=== PATIENT | female | born 1945 | race Caucasian/White ===

== ENCOUNTER 2019-06-22 08:17 | Inpatient (IN) ==
[2019-06-22] MEDS ORDERED: LR 1,000 ML ONE (09:19)
[2019-06-22 09:27] LABS: HEMATOCRIT 35.7 % (37.0-47.0); HEMOGLOBIN 12.3 g/dL (12.0-16.0); MCH 36.5 PG (27-31); MCHC 34.5 g/dL (33-37); MCV 105.9 FL (81-99); MPV 11.1 FL (7.4-10.4); RBC 3.37 XMIL (4.2-5.4); WBC 11.12 X1000 (4.8-10.8)
--- NOTE | 2019-06-22 09:42 | EKG Report ---
Test Performed on : 06/22/2019 08:44:35 AM Test Reason : Preop Blood Pressure : / mmHG Vent. Rate : 083 BPM Atrial Rate : 083 BPM P-R Int : 152 ms QRS Dur : 084 ms QT Int : 402 ms P-R-T Axes : 025 001 023 degrees QTc Int : 472 ms Normal sinus rhythm. Possible Left atrial enlargement Cannot rule out Anterior infarct , age undetermined Abnormal ECG No previous ECGs available Confirmed by Austyn EDMOND, Orestes Short ([id number]) on 06/24/2019 9:24:27 AM
[2019-06-22 09:47] LABS: AGAP 12; ALBUMIN 2.8 g/dL (3.5-5.0); ALKALINE PHOSPHATASE 338 U/L (32-104); BUN 13 mg/dL (8-22); CHLORIDE 96 mmol/L (98-107); COSMO 265; CREATININE 0.9 mg/dL (0.5-0.9); ESTIMATED GFR > 60; GLUCOSE 107 mg/dL (70-104); GOT 59 U/L (10-30); GPT 25 U/L (10-36); POTASSIUM 4.3 mmol/L (3.5-5.1); SODIUM 132 mmol/L (136-145); TCO2 24 mmol/L (25-35); TOTAL BILIRUBIN 7.29 mg/dL (0.20-1.00); TOTAL PROTEIN 5.6 g/dL (6.3-8.3)
[2019-06-22] MEDS ORDERED: ALBUMIN 25% ONE (09:58)
[2019-06-22] MEDS ORDERED: CLINDAMYCIN 900 MG/D5W 900 MG/50 ML IVPB ONE (10:00)
[2019-06-22] MEDS ORDERED: SENSORCAINE-MPF 0.5%/EPI 1:200,000 ONE (10:56)
[2019-06-22] MEDS ORDERED: PRECEDEX ONE (13:38)
[2019-06-22] MEDS ORDERED: PERCOCET-5 ONE (16:35)
--- NOTE | 2019-06-22 17:00 | OPERATIVE NOTE ---
PROCEDURE DATE: 06/22/2019 PREOPERATIVE DIAGNOSIS: Right closed olecranon fracture. POSTOPERATIVE DIAGNOSIS: Right closed olecranon fracture. PROCEDURE: Open reduction and internal fixation right olecranon fracture. SURGEON: Dr. Ramin Rivera. ASSISTANTS: Homero Torre, whose help was needed for retraction, reduction and placement of implants. ANESTHESIA: LMA. COMPLICATIONS: None. SPECIMENS: None. DRAINS: None. BLOOD LOSS: 50 mL. IMPLANTS: Synthes 3.5 mm variable angle olecranon locking plate was used with 2 cortical screws in the shaft and 2.7 mm locking screws everywhere else on the plate. INDICATIONS FOR PROCEDURE: Ms Garcia is a 74-year-old lady who sustained a same-level fall earlier this week. X-rays were taken in the office demonstrating a displaced transverse olecranon fracture. X-rays of her hip were also taken showing a comminuted nondisplaced greater trochanteric femur fracture on the right. Given these findings, decision was made to proceed to the operating room for open reduction internal fixation of her right olecranon fracture. Risks, benefits, alternative therapies were discussed the patient and family regarding surgery. Risks surgery include but not limited to risks of bleeding, infection, damage to nerves and vessels around the area, malunion, nonunion, continued pain following surgery, and need for revision surgery. The patient has significant history of alcoholic cirrhosis and end-stage liver disease requiring a TIPS procedure. I told her given this, she is likely going to be a little bit higher risk of wound complications. There is also risk anesthesia including blood clot, stroke, heart attack, even . Patient understands these risks. All questions were answered. Informed consent was obtained. PROCEDURE IN DETAIL: Ms. Garcia was identified by wristband and greeted in the preop holding area on 06/22/2019. Her right upper extremity which was the operative site was marked with indelible ink per [facility] Sign Your Site protocol. Following this, the patient was transferred back to the operating room for surgery. Upon entering the OR, she was transferred to supine position on the Skytron table. All bony prominences were well padded. LMA was then placed. At this time, the right upper extremity was prepped and draped in routine sterile fashion. Formal time-out was performed confirming correct patient, procedure, operative site, operative side, administration of preop antibiotics. Everyone was in agreement. Patient received 900 mg of clindamycin prior to incision. Esmarch was used to exsanguinate the right upper extremity and tourniquet was elevated to 250 mmHg. Total tourniquet time was 86 minutes. Once this was done, a 15 blade knife was used to make a longitudinal incision over the ulnar border extending proximally and curving over the radial aspect of the elbow and olecranon. Knife was used to dissect through skin, subcutaneous fat, and directly down onto the ulnar border distally. Metzenbaum scissors were then used to spread full-thickness flaps along the elbow. Care was taken to avoid dissecting medially for ulnar nerve exposure, which was not necessary. Once this was done, our fracture site was easily visible and significantly displaced. A knife was used to clean the periosteum and soft tissue from the edges of the fracture site. Rongeur and curette were then used to mechanically dbride the fracture site. At this time, the elbow joint and the fracture was copiously irrigated with normal saline. Sbsgt-as-sojqf reduction clamps were then used as well as a dental pick and the arm was extended slightly and anatomic reduction was obtained with the clamps. Once this was done, two 16 K-wires were then cross pinned provisionally holding our reduction. X-ray was taken confirming anatomic reduction of the articular surface. Once we were done with this, a Synthes variable angle olecranon plate was then taken from the back table and placed in the wound. We contoured the plate slightly so that it would fit flush on the bone. A 15 blade knife was used to make a longitudinal split in the triceps insertion so the plate would sit flush on bone. Once this was done, plate was then pinned in position. X-ray was again taken confirming good position of the plate and reduction of fracture. We then proceeded with placement of 3 locking screws in the proximal fracture fragment. A 3.5 mm cortical screw was then placed in compression mode on the shaft in order to obtain compression across the fracture site. Fluoroscopy was again taken. We were satisfied with the reduction and placement of implants. We then proceeded with placement of an additional cortical screw in the shaft followed by multiple 2.7 mm locking screws in the proximal end of the plate. Once all screws were placed, elbow was then taken through full range of motion and found to have full flexion and extension with no palpable crepitus or grinding. She had full pronation, supination of the forearm. At this time final AP and lateral images of the elbow were taken confirming anatomic reduction of the fracture and extra-articular placement of our screws. Images were then saved. At this time wound was copiously irrigated with normal saline. Then 20 mL of 0.25% Marcaine with epinephrine were then injected around the wound for local analgesia. We then proceeded with closure of our triceps tendon split with #1 Vicryl suture. 0 Vicryl suture was then used for closure of our flexor/ extensor fascia over the plate. We then closed the wound with 2-0 Vicryl suture subcutaneously and 4-0 nylons in horizontal mattress fashion for skin closure. The tourniquet was then deflated. Again, total tourniquet time was 86 minutes. Patient was found to have a palpable radial pulse and brisk capillary refill in all digits. At this time wound was then dressed with Xeroform, 4x4s, ABD, sterile Webril. She was then placed into a well-padded posterior slab splint with the arm in about 70 degrees of flexion. At this time, patient was then extubated, transferred over to hospital stretcher, taken to recovery in stable condition. There were no acute complications during the procedure. All sponge and sharp counts were correct at conclusion of the procedure.
[2019-06-22] MEDS ORDERED: PERCOCET-5 PO PRN (19:30)
[2019-06-23] MEDS: KLOR-CON PO SCH (10:37)
[2019-06-23] MEDS: XIFAXAN PO SCH ×2 (10:37→21:50)
[2019-06-23] MEDS: ZYRTEC PO SCH (10:37)
[2019-06-23] MEDS: SYNTHROID PO SCH (10:37)
[2019-06-23] MEDS: VITAMIN C PO SCH (10:37)
[2019-06-23] MEDS: VITAMIN B-1 PO SCH (10:37)
[2019-06-23] MEDS: LACTULOSE PO SCH ×3 (10:38→21:50)
[2019-06-23] MEDS: LASIX PO SCH (10:38)
[2019-06-23] MEDS: PERIDEX MT SCH ×2 (10:38→21:50)
[2019-06-23] MEDS: PROTONIX PO SCH (10:38)
[2019-06-23] MEDS: PERCOCET-5 PO PRN (18:50)
[2019-06-23] MEDS: FLONASE NAS SCH (18:50)
[2019-06-24] MEDS: PERCOCET-5 PO PRN (01:02)
[2019-06-24] MEDS: ULTRAM PO PRN ×2 (06:40→14:09)
[2019-06-24] MEDS: KLOR-CON PO SCH (11:15)
[2019-06-24] MEDS: LACTULOSE PO SCH ×2 (11:16→18:50)
[2019-06-24] MEDS: XIFAXAN PO SCH ×2 (11:16→21:00)
[2019-06-24] MEDS: VITAMIN C PO SCH (11:17)
[2019-06-24] MEDS: ZYRTEC PO SCH (11:17)
[2019-06-24] MEDS: LASIX PO SCH (11:17)
[2019-06-24] MEDS: PERIDEX MT SCH (11:17)
[2019-06-24] MEDS: PROTONIX PO SCH (11:18)
[2019-06-24] MEDS: VITAMIN B-1 PO SCH (11:18)
[2019-06-24] MEDS: FLONASE NAS SCH (11:19)
[2019-06-24] MEDS: SYNTHROID PO SCH (11:19)
[2019-06-24 12:48] LABS: BASO# 0.02 X1000 (0.0-0.2); BASO% 0.1 % (0.0-0.8); EOS# 0.19 X1000 (0.0-0.7); EOS% 1.3 % (0.0-10.0); HEMATOCRIT 36.7 % (37.0-47.0); HEMOGLOBIN 12.6 g/dL (12.0-16.0); IMM GRAN% 0.7 % (0.0-0.5); LYMPH# 0.68 X1000 (1.2-3.4); LYMPH% 4.8 % (20.5-51.1); MCH 37.5 PG (27-31); MCHC 34.3 g/dL (33-37); MCV 109.2 FL (81-99); MONO# 1.43 X1000 (0.11-0.59); NEUT# 11.81 X1000 (1.4-6.5); NEUT% 83.1 % (42.2-75.2); PLT 168 X1000 (130-400); RBC 3.36 XMIL (4.2-5.4); RDW 15.2 % (11.5-14.5); WBC 14.23 X1000 (4.8-10.8)
[2019-06-24 13:11] LABS: AGAP 12; BUN 11 mg/dL (8-22); CALCIUM 8.5 mg/dL (8.8-10.2); CHLORIDE 95 mmol/L (98-107); COSMO 264; CREATININE 0.7 mg/dL (0.5-0.9); ESTIMATED GFR > 60; GLUCOSE 104 mg/dL (70-104); POTASSIUM 4.2 mmol/L (3.5-5.1); SODIUM 132 mmol/L (136-145); TCO2 25 mmol/L (25-35)
[2019-06-24] MEDS: LOVENOX SUBQ SCH (14:08)
--- NOTE | 2019-06-24 14:53 | ORTHOPAEDICS PROGRESS NOTE ---
DATE: 06/24/2019 SUBJECTIVE: No acute events overnight. The patient has had some postoperative dementia and confusion since surgery. She has been off of oxygen and is doing well on room air. She reports minimal pain in the elbow and hip. She is tolerating a diet and urinating voluntarily. OBJECTIVE: Afebrile, vital signs stable. O2 saturation is 97% on room air. Extremities: Examination of right upper extremity shows posterior slab splint and dressing to be clean, dry, intact, in good repair. Motor is intact to AIN, PIN, and ulnar nerve distribution. Sensation is intact to light touch to median, radial, ulnar, and axillary nerve distribution. Brisk capillary refill x5. Examination of right lower extremity shows skin intact. Thigh and calf soft and compressible. She is tender to palpation around her greater trochanter. Neurovascularly intact. ASSESSMENT: A 74-year-old female status post open reduction and internal fixation of right olecranon fracture and closed treatment of right greater trochanteric femur fracture, postop day 2. PLAN: 1. Patient is nonweightbearing to the right upper extremity. She can be weightbearing as tolerated to the right lower extremity. Physical therapy to mobilize. 2. Ice and elevate right upper extremity. 3. Lovenox DVT prophylaxis. 4. The patient has some postoperative confusion, likely secondary to anesthesia and dementia. We will get another set of labs today. 5. Disposition. Plan to discharge back to [facility] tomorrow. She will follow up with me in clinic in 10 to 14 days for a wound check.
[2019-06-25] MEDS: LACTULOSE PO SCH ×3 (00:37→15:35)
[2019-06-25] MEDS: ULTRAM PO PRN (07:08)
[2019-06-25] MEDS: LOVENOX SUBQ SCH (07:08)
[2019-06-25] MEDS: PERIDEX MT SCH ×2 (08:04→11:09)
[2019-06-25] MEDS: SYNTHROID PO SCH (11:08)
[2019-06-25] MEDS: ZYRTEC PO SCH (11:09)
[2019-06-25] MEDS: XIFAXAN PO SCH (11:09)
[2019-06-25] MEDS: KLOR-CON PO SCH (11:09)
[2019-06-25] MEDS: VITAMIN C PO SCH (11:09)
[2019-06-25] MEDS: VITAMIN B-1 PO SCH (11:09)
[2019-06-25] MEDS: PROTONIX PO SCH (11:10)
[2019-06-25] MEDS: LASIX PO SCH (11:10)
[2019-06-25 12:22] VITALS: BP 147/68
--- NOTE | 2019-06-25 13:12 | ORTHOPAEDICS PROGRESS NOTE ---
DATE: 06/25/2019 SUBJECTIVE: No acute events overnight. The patient has had some postoperative dementia; however, it is slightly improved today from yesterday. She is tolerating a diet. She states her pain is controlled. OBJECTIVE: Vital Signs: Afebrile. Her vital signs are stable. Extremities: Examination of right upper extremity shows the splint to be clean, dry, intact. The patient is neurovascularly intact to the right upper extremity. Examination of right hip shows skin intact. Tender to palpation laterally over greater trochanter. No pain with log roll of the hip. Thigh and calf soft and compressible. Neurovascularly intact. ASSESSMENT: A 74-year-old female status post open reduction internal fixation of right olecranon fracture and closed treatment of right greater trochanteric femur fracture. PLAN: 1. Patient is nonweightbearing to right upper extremity. She can be weightbearing as tolerated to right lower extremity. She will need physical therapy to mobilize. She will likely be bed to chair transfers for the next few weeks. She will be a high fall risk. 2. Postoperative dementia seems to be improving. The labs are all within acceptable limits. We will continue to monitor. 3. Ice to right elbow and hip as needed for pain. 4. Lovenox for DVT prophylaxis. 5. Disposition. Plan to discharge back to [facility] today. I will see her back in the clinic in 10 to 14 days for wound check.
--- NOTE | 2019-06-25 13:34 | DISCHARGE SUMMARY ---
ADMISSION DATE: 06/24/2019 DISCHARGE DATE: 06/25/2019 ADMISSION DIAGNOSES: 1. Right closed olecranon fracture. 2. Right greater trochanteric femur fracture. DISCHARGE DIAGNOSES: 1. Right closed olecranon fracture. 2. Right greater trochanteric femur fracture. PROCEDURE: Open reduction and internal fixation right olecranon fracture. CONSULTATIONS: None. BRIEF HOSPITAL COURSE: Ms. Garcia is a 74-year-old lady who sustained the above injuries about 1 week ago. She was seen in clinic, evaluated for this and set up for fixation of her right olecranon fracture. Surgery performed on 06/22/2019. She tolerated the procedure well. However, was having some issues with respiratory depression postoperatively and was thus admitted for observation. Over the weekend, her respiratory status improved and eventually resolved where she is now on room air with good O2 saturation. She also developed some postoperative dementia. Lab work was drawn showing no signs of metabolic encephalopathy. Her dementia began to resolve on postop day 3. On postoperative day 3, patient was tolerating a diet, had gotten up with physical therapy and her pain was well controlled on p.o. pain medication. Patient was thus discharged back to [facility] residential Facility on 06/25/2019. DISPOSITION: Discharged back to inpatient rehab or at [facility]. ACTIVITY: The patient is nonweightbearing right upper extremity. Weight bear as tolerated right lower extremity. DISCHARGE MEDICATIONS: See chart. DISCHARGE INSTRUCTIONS: 1. Patient is to keep surgical dressing clean, dry, intact until follow-up appointment. 2. She should take Lovenox 30 mg daily for DVT prophylaxis. 3. The patient is to follow up with me in clinic in 10 to 14 days for wound check. 4. The patient is to return to the ER with any chest pain, shortness of breath, fever, and any interval drainage from surgical incision.
== END 2019-06-25 16:08 | DRG 510 ==
LOC: OR 08:17 → 4N 08:17
PROVIDERS: ADMIT Orthopaedic Surgery Sports Medicine; ATTEND Orthopaedic Surgery Sports Medicine

== ENCOUNTER 2019-07-06 08:46 | Inpatient (IN) ==
[2019-07-06] MEDS ORDERED: DIPRIVAN 1% ONE (09:30)
[2019-07-06] MEDS ORDERED: ROBINUL ONE (09:30)
[2019-07-06] MEDS ORDERED: XYLOCAINE-MPF 2% ONE (09:30)
[2019-07-06] MEDS ORDERED: PEPCID ONE (09:51)
[2019-07-06] MEDS ORDERED: KEFZOL 1 GM/D5W 1 GM/50 ML IVPB ONE (09:51)
[2019-07-06] MEDS ORDERED: LR 500 ML ONE (09:51)
[2019-07-06] MEDS ORDERED: PRECEDEX ONE (10:31)
[2019-07-06] MEDS ORDERED: EPHEDRINE ONE (11:13)
[2019-07-06] MEDS ORDERED: DILAUDID ONE (11:52)
[2019-07-06] MEDS ORDERED: SENSORCAINE-MPF 0.5%/EPI 1:200,000 ONE (13:09)
[2019-07-06] MEDS ORDERED: PERCOCET-5 PO PRN ×2 (14:00)
[2019-07-06] MEDS ORDERED: ZOFRAN PO PRN (20:09)
[2019-07-06] MEDS ORDERED: ULTRAM PO PRN (20:09)
--- NOTE | 2019-07-06 21:31 | OPERATIVE NOTE ---
PROCEDURE DATE: 07/06/2019 PREOPERATIVE DIAGNOSIS: Right olecranon fracture with failed hardware: POSTOPERATIVE DIAGNOSIS: Right olecranon fracture with failed hardware: PROCEDURE: 1. Hardware removal, right olecranon. 2. Revision open reduction and internal fixation, right olecranon fracture. SURGEON: Ramin Rivera MD. GLUING MACHINE FEEDER: VENUS Arcos, whose help was needed for retraction, reduction, and placement of implants. ANESTHESIA: General endotracheal anesthesia. COMPLICATIONS: None. SPECIMENS: None. DRAINS: None. BLOOD LOSS: 10 mL. INDICATIONS FOR PROCEDURE: Ms. Garcia is a 74-year-old lady who has been followed after sustaining a right closed olecranon fracture. She previously underwent open reduction and internal fixation by me about 12 days ago. She was placed into a splint following surgery. However, has been using the arm to lift herself out of bed, and has had a couple of falls while at the [facility] facility. The patient does have a history of some dementia. X-rays taken in the office at her first postop visit demonstrated failure of fixation of the proximal fracture piece, which pulled out of the plate. Given these findings, decision was made to proceed back to the operating room for hardware removal and revision fixation of the fracture. Risks, benefits, and alternative therapies were discussed with the patient and daughter regarding surgery. Risks of surgery include, but are not limited to, risks of bleeding, infection, damage to nerves and vessels around the area, malunion, nonunion, continued pain following surgery, need for revision surgery, also risks of anesthesia including blood clot, stroke, heart attack, even . Patient understands these risks. All questions were answered. Informed consent was obtained. PROCEDURE IN DETAIL: Ms. Garcia was identified by wristband and greeted in the preoperative holding area on 07/06/2019. Her right upper extremity, which was the operative site,, was marked with indelible ink per [facility] sign and site protocol. Following this, the patient was transferred back to the operating room for surgery. Upon entering the OR, she was transferred in supine position on the Skytron table. All bony prominences were well padded. General endotracheal anesthesia was then induced. At this time, the right upper extremity was then prepped and draped in routine sterile fashion. Formal time-out was performed, confirming correct patient, procedure, operative site, operative side, administration of preop antibiotics. Everyone was in agreement. Patient received clindamycin prior to incision. Esmarch was used to exsanguinate the right upper extremity and tourniquet was elevated to 250 mmHg. Total tourniquet time was 132 minutes. Once this was done, a 15 blade knife was used to make our incision through the old incision along the posterior aspect of the ulna, curving radially around the olecranon. Knife was used to dissect through skin and subcutaneous tissue. Our fascial closure over the plate was then identified and split through the prior incision. At this time, we had good exposure of the fracture site. The proximal piece of the olecranon fracture site had pulled off and was retracted proximally. Synthes cortical and locking screw drivers were then used to remove the initial plate, which was found to be well fixed to the ulnar shaft. Once that plate was removed, the plate holes were curetted out. We then began with exposing our fracture site again. Patient was found to have some fracture callus within the joint and along the bony ends of the fracture. The proximal piece was mobilized by freeing up some of the triceps tendon musculature. It was still significantly tight. She had some significant bone loss from where her fixation failed and the proximal piece ripped through the screws and the plate. The articular surface was intact; however, the more dorsal and ulnar aspect of bone was missing. Once we adequately freed up her fracture sites, we then used [id number]-io-[id number] reduction clamps to get a reduction of the fracture. Fluoroscopy was brought in, confirming reduction on AP and lateral views. We then initially pinned the fracture with a 2-0 K-wire. Once this was done, a Yamilet olecranon locking plate was placed on the bone and screw configuration was examined. We also had a [employer] plate available to look at as well. We decided to go with a Yamielt plate as it had better proximal fixation for this fracture pattern. The plate was then pinned in position in routine fashion, and again x-rays were taken, confirming position of the plate and reduction of the fracture. Following this, we placed a locking home-run screw through the most proximal hole. A cortical shaft screw was then placed in compression mode to compress against the fracture site. Following this, we then began to fill our proximal locking screw holes. We had good fixation of the proximal olecranon fracture fragment with our locking screw configuration. Three cortical shaft screws were then placed in routine fashion. Once all screws were placed, AP and lateral images were again taken, demonstrating anatomic reduction of the joint line. We did have some room along the subchondral bone of the proximal fragment and joint line for placement of an additional 2.7 mm cortical screw outside of the plate, and this was thus drilled with a 2-0 drill bit in routine fashion. The screw had excellent purchase and provided another point of fixation across the fracture site. Once all hardware was placed, we then examined the fracture site, and noted to have a large bony defect over the medial aspect of the olecranon. 1 mL of DBX bone graft was opened and packed into this area. At this time, a #2 FiberWire suture was then used to repair our triceps split to the posterior aspect of the olecranon. We also used a separate #2 FiberWire in a running locking Krackow fashion proximally up the triceps tendon, and then back down, and secured this under the plate to help take some of the tension off the proximal olecranon fragment. At this time, the elbow was then taken through range of motion. She did have some stiffness and would flex to about 90 degrees without stressing the repair. We took final AP and lateral x-rays, again confirming extra- articular placement of the hardware and anatomic reduction of the articular surface. Wound was then copiously irrigated with normal saline. 20 mL of 0.25% Marcaine with epinephrine were injected around the muscles and surgical incision site for local analgesia. We then proceeded with closure of our flexor and extensor fascia over the plate using 0 Vicryl suture. 2-0 Vicryl sutures were used for subcutaneous tissue closure followed by 3-0 nylons in horizontal mattress fashion for skin closure. Tourniquet was then deflated. Again, total tourniquet time was 132 minutes. The wound was then dressed with Xeroform, 4x4s, Dacron padding along the elbow. She was then placed into a well-padded anterior and posterior splint, keeping the elbow in near full extension in order to take tension off the repair. At this time, patient was then extubated, transferred over to hospital stretcher, and taken to Recovery. All sponge and sharp counts were correct at conclusion of the procedure.
[2019-07-06] MEDS: LACTULOSE PO SCH (22:28)
[2019-07-06] MEDS: MACRODANTIN PO SCH (22:28)
[2019-07-06] MEDS: XIFAXAN PO SCH (22:28)
[2019-07-07] MEDS: SYNTHROID PO SCH (06:15)
[2019-07-07] MEDS: PROTONIX PO SCH (06:15)
[2019-07-07 06:59] LABS: URINE SOURCE CLEAN CATCH
[2019-07-07 07:06] LABS: BILIRUBIN URINE NEGATIVE (NEGATIVE); BLOOD URINE NEGATIVE (NEGATIVE); COLOR YELLOW; GLUCOSE URINE NEGATIVE (NEGATIVE); KETONE URINE NEGATIVE (NEGATIVE); LEUKOCYTES URINE TRACE (NEGATIVE); NITRITE URINE NEGATIVE (NEGATIVE); PROTEIN URINE TRACE mg/dL (NEGATIVE); SP GRAVITY URINE 1.018; TURBIDITY URINE CLEAR (CLEAR); UROBILINOGEN URINE NORMAL (NORMAL)
[2019-07-07 07:09] LABS: UR EPITHELIAL CELLS <10 /HPF (<10); URINE BACTERIA NEGATIVE /HPF; URINE RBC <10 /HPF (<10)
[2019-07-07 08:08] LABS: URINE CRYSTALS NONE SEEN; URINE SMALL ROUND CELLS RENAL PRESENT
[2019-07-07 10:04] LABS: BASO# 0.04 X1000 (0.0-0.2); BASO% 0.5 % (0.0-0.8); EOS# 0.18 X1000 (0.0-0.7); EOS% 2.1 % (0.0-10.0); HEMATOCRIT 37.4 % (37.0-47.0); HEMOGLOBIN 12.6 g/dL (12.0-16.0); LYMPH# 1.03 X1000 (1.2-3.4); LYMPH% 11.8 % (20.5-51.1); MCH 35.6 PG (27-31); MCHC 33.7 g/dL (33-37); MCV 105.6 FL (81-99); MONO# 1.28 X1000 (0.11-0.59); MONO% 14.6 % (1.7-9.3); MPV 10.9 FL (7.4-10.4); NEUT# 6.23 X1000 (1.4-6.5); PLT 135 X1000 (130-400); RBC 3.54 XMIL (4.2-5.4); RDW 13.3 % (11.5-14.5); WBC 8.76 X1000 (4.8-10.8)
[2019-07-07 10:12] LABS: AGAP 9; ALB/GLOB RATIO 0.9; ALBUMIN 2.3 g/dL (3.5-5.0); ALKALINE PHOSPHATASE 394 U/L (32-104); BUN 10 mg/dL (8-22); CHLORIDE 99 mmol/L (98-107); COSMO 267; CREATININE 0.5 mg/dL (0.5-0.9); ESTIMATED GFR > 60; GLUCOSE 125 mg/dL (70-104); GOT 38 U/L (10-30); GPT 18 U/L (10-36); POTASSIUM 4.1 mmol/L (3.5-5.1); SODIUM 133 mmol/L (136-145); TCO2 25 mmol/L (25-35); TOTAL BILIRUBIN 6.71 mg/dL (0.20-1.00)
[2019-07-07] MEDS: FLONASE NAS SCH (10:16)
[2019-07-07] MEDS: VITAMIN B-1 PO SCH (10:17)
[2019-07-07] MEDS: ASPIRIN PO SCH (10:17)
[2019-07-07] MEDS: MACRODANTIN PO SCH ×2 (10:17→23:49)
[2019-07-07] MEDS: LASIX PO SCH (10:18)
[2019-07-07] MEDS: ZYRTEC PO SCH (10:18)
[2019-07-07] MEDS: KLOR-CON PO SCH (10:18)
[2019-07-07] MEDS: XIFAXAN PO SCH ×2 (10:18→23:49)
[2019-07-07 10:30] LABS: BANDS 2 % (0-1); EOS 2 % (1-10); LYMPHS 10 % (21-51); MONO 14 % (1-9); SEGS 68 % (42-75)
--- NOTE | 2019-07-07 10:52 | CONSULTATION ---
DATE OF CONSULTATION: 07/07/2019 PRIMARY CARE PHYSICIAN: 1. Sanjana Tucker. 2. Orthopedic, Dr. Rivera CHIEF COMPLAINT: This is a medical consult for medical management of this patient during hospitalization. She is status post a right revision open reduction and internal fixation of the right olecranon fracture. HISTORY OF PRESENTING ILLNESS: This is a 74-year-old female who presented to orthopedic surgery for hardware removal of the right olecranon revision ORIF of the right olecranon fracture. Her surgery went well. She is currently lying in the bed. Answers most questions appropriately. She is noted to have her right arm elevated on a pillow with a soft cast on her right arm. She did not have any recent labs except for a urinalysis this morning that was normal so we will follow her throughout the remainder of her hospital stay for medical management. PAST MEDICAL HISTORY: Osteoporosis, chronic kidney disease (unknown stage), end-stage liver disease, GERD, alcoholic cirrhosis, and hypothyroidism. PAST SURGICAL HISTORY: Hysterectomy, bilateral total hip arthroscopies, an ORIF of the right elbow, now a removal of that hardware and revision of an ORIF of the right elbow yesterday and a bilateral tubal ligation. FAMILY HISTORY: Reviewed and noncontributory. SOCIAL HISTORY: She currently resides at [facility]. No tobacco, alcohol or illicit drug use. ALLERGIES: To codeine and penicillin. HOME MEDICATIONS: She takes ascorbic acid 500 mg p.o. q.a.m., aspirin 325 mg p.o. q.a.m., cetirizine 5 mg p.o. q.a.m., Flonase 1 spray nasally q.a.m., Lasix 20 mg p.o. q.a.m., lactulose 30 mL p.o. t.i.d., Synthroid 50 mcg p.o. q.a.m., nitrofurantoin 100 mg p.o. b.i.d., ondansetron 4 mg p.o. q. 8 hours p.r.n., pantoprazole 40 mg p.o. q.a.m., potassium 20 mEq p.o. q.a.m. Rifaximin 550 mg p.o. b.i.d. thiamin 100 mg p.o. q.a.m., tramadol 50 mg 1 to 2 tablets p.o. q.6 hours p.r.n. LABORATORY DATA: Showed a urinalysis that was negative. REVIEW OF SYSTEMS: She denies any blurred vision, dizziness, chest pain, coughing, shortness of breath, abdominal pain, constipation, diarrhea, nausea, vomiting, burning or hurting with urination. She does have some pain to her right arm, status post her surgery. PHYSICAL EXAMINATION: Temperature 97.7 degrees, pulse 74, respirations 16, blood pressure 163/74, saturating 97% on room air.General: This is a 74-year-old female who is lying in the bed and answers questions appropriately. HEENT: Normocephalic, atraumatic. Normal ENT inspection. Oropharynx and nares are clear. Eyes: Pupils are equal, round, reactive to light and accommodation. Extraocular movements are intact. Neck: Normal inspection, normal range of motion. Lungs: Clear to auscultation bilaterally with equal lung expansion and chest wall movement. Heart: With regular rate and rhythm. No murmurs, rubs, or gallops. Abdomen: Soft, nontender, nondistended. Bowel sounds are present x4 quadrants. Musculoskeletal: She had 5/5 strength x3 extremities. Her right arm has a soft cast from her wrist up to her shoulder. She has it elevated on a pillow currently. Neurological: The cranial nerves 2-12 appear grossly intact. ASSESSMENT: 1. Status post revision open reduction/internal fixation of the right olecranon fracture. 2. History of alcoholic cirrhosis with end-stage liver disease. 3. Chronic kidney disease, unknown stage. 4. Hypothyroidism. PLAN: We are going to obtain a CBC, CMP this a.m. to evaluate liver and kidney function. We will review those labs to see if any fluids are needed at this time. We will continue her home medications as previously identified. Urine culture is pending. We will continue pain management per Orthopedics. We appreciate the opportunity to follow this patient throughout the remainder of her hospitalization. Dictated by VENUS Olivarez for Tyrell Bellamy MD Addendum: Patient seen and examined by myself. Agree with VENUS note. It reflects my assessment and plan. Patient is admitted to hospital by orthopedic team for removal of hardware and we were consulted for medical management in a patient with liver cirrhosis. She looks confused so will check ammonia level and LFTs and will follow along with you. cc: VENUS Olivarez MD MTDD
--- NOTE | 2019-07-07 11:57 | ORTHOPAEDICS PROGRESS NOTE ---
DATE: 07/07/2019 Ms. Garcia is seen status post ORIF of her elbow. Her bandage is clean and dry. She does have some confusion this morning. The hospitalist is consulted for evaluation of this. Vital signs are otherwise stable. We will plan on returning her to rehab on Tuesday. Currently, she is surgically stable. cc: MD Tyrell Orozco MD
[2019-07-07] MEDS: LACTULOSE PO SCH ×3 (12:40→23:48)
[2019-07-07] MEDS: VITAMIN C PO SCH (15:59)
[2019-07-07] MEDS ORDERED: NORCO-5 PO PRN (20:34)
[2019-07-08] MEDS: SYNTHROID PO SCH (06:24)
[2019-07-08] MEDS: PROTONIX PO SCH (06:24)
[2019-07-08 08:37] LABS: BASO# 0.07 X1000 (0.0-0.2); BASO% 0.9 % (0.0-0.8); EOS# 0.19 X1000 (0.0-0.7); EOS% 2.3 % (0.0-10.0); HEMATOCRIT 34.7 % (37.0-47.0); HEMOGLOBIN 13.1 g/dL (12.0-16.0); IMM GRAN# 0.02 X1000 (0.0-0.04); IMM GRAN% 0.2 % (0.0-0.5); LYMPH# 1.02 X1000 (1.2-3.4); LYMPH% 12.6 % (20.5-51.1); MCH 39.9 PG (27-31); MCHC 37.8 g/dL (33-37); MCV 105.8 FL (81-99); MONO# 0.94 X1000 (0.11-0.59); MONO% 11.6 % (1.7-9.3); MPV 11.2 FL (7.4-10.4); NEUT# 5.86 X1000 (1.4-6.5); NEUT% 72.4 % (42.2-75.2); PLT 130 X1000 (130-400); RBC 3.28 XMIL (4.2-5.4); RDW 13.5 % (11.5-14.5)
[2019-07-08 08:46] LABS: INR 1.56
[2019-07-08 09:04] LABS: AGAP 10; ALB/GLOB RATIO 0.9; ALBUMIN 2.4 g/dL (3.5-5.0); ALKALINE PHOSPHATASE 417 U/L (32-104); BUN 9 mg/dL (8-22); CALCIUM 8.3 mg/dL (8.8-10.2); CHLORIDE 96 mmol/L (98-107); COSMO 264; CREATININE 0.5 mg/dL (0.5-0.9); ESTIMATED GFR > 60; GLUCOSE 85 mg/dL (70-104); GOT 42 U/L (10-30); GPT 17 U/L (10-36); SODIUM 133 mmol/L (136-145); TCO2 27 mmol/L (25-35); TOTAL BILIRUBIN 6.38 mg/dL (0.20-1.00); TOTAL PROTEIN 5.2 g/dL (6.3-8.3)
--- NOTE | 2019-07-08 09:43 | PROGRESS NOTE ---
DATE: 07/08/2019 SUBJECTIVE: The patient reports feeling fine. She is oriented in place and time, and recognized daughter who is at bedside. OBJECTIVE: Vital Signs: Temperature 98.3 degrees, heart rate 82, respiratory rate 16, blood pressure 128/47, O2 saturation 95% on room air again. General: This is a 74-year-old, female, lying in bed in no acute distress. Cardiovascular: S1 and S2 heard. No murmurs, gallops, or rubs. Regular rate and rhythm. Respiratory: Clear bilaterally to auscultation. No work of breathing or using accessory muscles. Abdomen: Soft. Nontender to palpation. Bowel sounds present. No organomegaly. Extremities: No clubbing, cyanosis, or edema. Peripheral pulses present in both legs. Right arm has a soft cast. Neurological: The patient is alert and oriented x3. Moves all 4 extremities. LABORATORY DATA: Total bilirubin 6.38, AST 42, ALT 17. INR 1.56. Hemoglobin 13.1. ASSESSMENT AND PLAN: 1. Status post revision open reduction internal fixation, right olecranon fracture. Orthopedics is following this patient. 2. History of alcoholic cirrhosis with end-stage liver disease. At this point, will need to avoid any Tylenol-containing products like Callender or Percocet. Currently, I will discontinue her Callender, and will use tramadol as needed for pain. We may need to give her something more stronger. Will try oxycodone. The patient is currently on lactulose and rifaximin for hepatic encephalopathy, and she looks definitely much more oriented today. I think we need to continue with current medications. 3. Chronic kidney disease. At this point, the kidney function is completely okay, with normal glomerular filtration rate, so I do not think this patient has any real chronic kidney disease, so will continue to monitor. 4. Hypothyroidism. Will continue with home medications. 5. Disposition. At this point, the patient is stable from a medical standpoint. I think this patient can be discharged to rehab tomorrow, if okay with primary team. cc: Tyrell Bellamy MD
[2019-07-08] MEDS: ASPIRIN PO SCH (10:50)
[2019-07-08] MEDS: LACTULOSE PO SCH ×3 (10:50→23:38)
[2019-07-08] MEDS: VITAMIN C PO SCH (10:50)
[2019-07-08] MEDS: LASIX PO SCH (10:50)
[2019-07-08] MEDS: MACRODANTIN PO SCH ×2 (10:51→23:38)
[2019-07-08] MEDS: XIFAXAN PO SCH ×2 (10:51→23:38)
[2019-07-08] MEDS: ZYRTEC PO SCH (10:51)
[2019-07-08] MEDS: VITAMIN B-1 PO SCH (10:51)
[2019-07-08] MEDS: KLOR-CON PO SCH (10:51)
[2019-07-08] MEDS: FLONASE NAS SCH (10:52)
--- NOTE | 2019-07-08 10:55 | ORTHOPAEDICS PROGRESS NOTE ---
DATE: 07/08/2019 Ms. Garcia is seen status post ORIF of her elbow. At the present time, she is stable. Her bandage is clean and dry. She appears to be motor and sensory intact. Currently, she is undergoing medical evaluation. We will plan on transferring her to rehab tomorrow. She appears to be medically stable as well as surgically stable. She will require rehab placement. If a bed is available, she can be transferred tomorrow unless there is some change in her medical condition. cc: MD Tyrell Orozco MD
[2019-07-08] MEDS: ULTRAM PO PRN (13:23)
[2019-07-09] MEDS: SYNTHROID PO SCH (06:12)
[2019-07-09] MEDS: PROTONIX PO SCH (06:12)
[2019-07-09] MEDS ORDERED: FLU VACCINE IM ONE (06:17)
[2019-07-09 07:39] LABS: INR 1.4; PROTIME 17.5 Seconds (11.0-16.0)
[2019-07-09 08:01] LABS: AGAP 12; ALB/GLOB RATIO 0.9; ALBUMIN 2.4 g/dL (3.5-5.0); ALKALINE PHOSPHATASE 401 U/L (32-104); BUN 7 mg/dL (8-22); CALCIUM 7.7 mg/dL (8.8-10.2); CHLORIDE 99 mmol/L (98-107); COSMO 272; CREATININE 0.5 mg/dL (0.5-0.9); ESTIMATED GFR > 60; GLUCOSE 103 mg/dL (70-104); GOT 43 U/L (10-30); GPT 18 U/L (10-36); POTASSIUM 3.5 mmol/L (3.5-5.1); SODIUM 137 mmol/L (136-145); TCO2 26 mmol/L (25-35); TOTAL PROTEIN 5.1 g/dL (6.3-8.3)
[2019-07-09 08:27] LABS: BASO# 0.03 X1000 (0.0-0.2); BASO% 0.5 % (0.0-0.8); EOS# 0.29 X1000 (0.0-0.7); EOS% 4.8 % (0.0-10.0); HEMATOCRIT 31.6 % (37.0-47.0); HEMOGLOBIN 12.4 g/dL (12.0-16.0); LYMPH# 0.94 X1000 (1.2-3.4); LYMPH% 15.5 % (20.5-51.1); MCH 40.4 PG (27-31); MCHC 39.2 g/dL (33-37); MCV 102.9 FL (81-99); MONO# 0.99 X1000 (0.11-0.59); MONO% 16.3 % (1.7-9.3); MPV 11.5 FL (7.4-10.4); NEUT# 3.81 X1000 (1.4-6.5); NEUT% 62.9 % (42.2-75.2); PLT 130 X1000 (130-400); RBC 3.07 XMIL (4.2-5.4); WBC 6.06 X1000 (4.8-10.8)
[2019-07-09 08:48] LABS: LYMPHS 8 % (21-51); MONO 14 % (1-9); SEGS 78 % (42-75)
--- NOTE | 2019-07-09 09:36 | PROGRESS NOTE ---
DATE: 07/09/2019 SUBJECTIVE: The patient reports feeling okay. She denies any urinary symptoms, like dysuria or urinary frequency. She denies any fever. OBJECTIVE: Vital Signs: Temperature 97.8, heart rate 70, respiratory rate 19, blood pressure 166/75, O2 saturation 98% on room air. General: This is a 74-year-old, female, lying in bed in no acute distress. HEENT: Head is normocephalic, atraumatic. Icteric sclerae. Pale conjunctivae. Cardiovascular: S1, S2 heard. No murmurs, gallops, or rubs. Regular rate and rhythm. Respiratory: Clear bilaterally to auscultation. No work of breathing or using accessory muscles. Abdomen: Soft, nontender to palpation. Bowel sounds present. No organomegaly. Extremities: No clubbing, cyanosis, or edema. Peripheral pulses present in both legs. Right arm has a soft cast. Neurological: The patient is sometimes sleepy, but most of the time is awake, alert, and answers questions appropriately. Moves all 4 extremities. LABORATORY DATA: White cell count 6.06, hemoglobin 12.4, hematocrit 31.6, platelets 130,000. INR 1.4. BMP unremarkable. Total bilirubin 4.4, AST 48, ALT 18. ASSESSMENT AND PLAN: 1. Status post revision open reduction internal fixation of the right olecranon. Orthopedics is following this patient. She is stable from their standpoint to be discharged to back to rehab. 2. History of alcoholic cirrhosis with end-stage liver disease. At this point, that condition is stable. The patient is receiving lactulose and rifaximin for prevention of hepatic encephalopathy. She is doing okay. Will continue with the same management. 3. Acute kidney injury, completely resolved. 4. Klebsiella pneumoniae extended spectrum beta-lactamase urinary tract infection. The patient has this finding. She is not complaining of any dysuria. The white cell count is normal. She is not spiking any fever. At this point, I am going to check with Infectious Disease, Dr. Roberts, if this patient needs to be treated or not. Will provide further doses of ertapenem. Will see what Dr. Gustabo Roberts from Infectious Disease has to say. 5. Hypothyroidism. Will continue home medications. 6. Disposition. Will continue to monitor this patient closely. Once we know what to do with this extended spectrum beta-lactamase Escherichia coli urinary tract infection, then will discharge this patient. cc: Tyrell Bellamy MD
[2019-07-09] MEDS: LASIX PO SCH (09:49)
[2019-07-09] MEDS: MACRODANTIN PO SCH (09:49)
[2019-07-09] MEDS: VITAMIN B-1 PO SCH (09:49)
[2019-07-09] MEDS: VITAMIN C PO SCH (09:49)
[2019-07-09] MEDS: XIFAXAN PO SCH ×2 (09:49→22:42)
[2019-07-09] MEDS: KLOR-CON PO SCH (09:49)
[2019-07-09] MEDS: ASPIRIN PO SCH (09:49)
[2019-07-09] MEDS: PERIDEX MT SCH ×2 (09:50→22:42)
[2019-07-09] MEDS: LACTULOSE PO SCH ×3 (09:50→22:42)
[2019-07-09] MEDS: FLONASE NAS SCH (09:52)
[2019-07-09] MEDS: ULTRAM PO PRN ×2 (10:22→22:48)
[2019-07-09] MEDS ORDERED: NS 500 ML ONE (10:23)
[2019-07-09] MEDS: INVANZ 1 GM/NS 1 GM/50 ML IVPB IV SCH (10:23)
--- NOTE | 2019-07-09 12:23 | ORTHOPAEDICS PROGRESS NOTE ---
DATE: 07/09/2019 SUBJECTIVE: No acute events overnight. The patient states her pain is controlled. She is tolerating a diet. OBJECTIVE: Vital Signs: Afebrile. Vital signs are stable. Hematocrit is 32. Extremities: Examination of the right upper extremity shows long-arm splint to be clean, dry, intact. Motor is intact, AIN, PIN, and ulnar nerve distribution. Sensation is intact to light touch to median, radial, ulnar, and axillary nerves. Brisk capillary refill x5. Examination of right hip shows skin intact. Mild tenderness to palpation over the lateral aspect of the greater trochanter. No pain with log roll of the hip. Neurovascularly intact. ASSESSMENT: A 74-year-old female, status post revision open reduction internal fixation, right olecranon fracture, postoperative day 3. She also is status post closed treatment of right greater trochanteric femur fracture. PLAN: 1. The patient is weightbearing as tolerated, right lower extremity. Physical Therapy to mobilize with assistive device. Nonweightbearing to the right upper extremity. 2. Appreciate hospitalist recommendations. 3. The patient has Klebsiella pneumoniae extended beta-lactamase resistant UTI. Awaiting Dr. Roberts with Infectious Disease recommendations regarding treatment for this. 4. Disposition. Will plan on discharging back to [facility] once ID recommendations are in place. The patient is currently stable from orthopedic and medical standpoint otherwise. I will see her in clinic in 10 to 14 days for a wound check and placement into a cast. cc: Tyrell Bellamy MD
[2019-07-09 12:48] LABS: INR 1.45; PROTIME 17.9 Seconds (11.0-16.0)
--- NOTE | 2019-07-09 12:56 | INFECTIOUS DISEASE CONSULT REP ---
DATE: 07/09/2019 CONCLUSION: The patient has an extended spectrum beta lactamase producing Klebsiella urinary tract infection. RECOMMENDATIONS: I agree with treating the patient with ertapenem. Some of the side effects of the antibiotic including rash, diarrhea, and seizures have been explained to the patient, who agrees with treatment. I would suggest treating for a total of 14 days. DISCUSSION: The patient has had surgery on her right elbow twice. During this admission, she developed an altered mental status and some fever. She was found to have an extended spectrum beta lactamase producing Klebsiella urinary tract infection. PAST MEDICAL HISTORY: The patient was unable to give any history and the history I did take was mainly from the patient's daughter and from the information in the computer. REVIEW OF SYSTEMS: Unable to be obtained. ACCOUNTS RECEIVABLE EXECUTIVE HISTORY: She is a 3, para 2, AB 1. She has had a tubal ligation and a hysterectomy PREVIOUS HOSPITALIZATIONS AND OPERATIONS: She has had a TIPS procedure. She has had a thoracentesis performed. She has had labor and deliveries, and a miscarriage, as well as a hysterectomy and tubal ligation. She has had bilateral total hip arthroscopies, 2 surgeries on her right elbow. MEDICAL DISEASES: Transient ischemic attacks, cirrhosis of the liver, gastroesophageal reflux disease, alcoholism, and hypothyroidism. FAMILY HISTORY: Family history was said to be noncontributory. SOCIAL HISTORY: The patient lives at [place]. She is a heavy alcoholic drinker. She does not smoke cigarettes or abuse drugs. DRUG ALLERGIES: Codeine and penicillin. The penicillin was a rash and the patient thus far has tolerated her dose of Invanz. MEDICATIONS TAKEN AT HOME: Include Zyrtec, Flonase, Lasix, Synthroid, Zofran, Protonix, rifaximin, and tramadol. PHYSICAL EXAMINATION: Temperature is 97.8 degrees, pulse 70, respirations 19, blood pressure is 166/75, the patient weighs 122 pounds. She is 5 feet 3 inches tall and weighs 122 pounds. General: This is a chronically ill-appearing, elderly female. She is icteric. She is in no acute distress. Head, Eyes, Ears, Nose, and Throat: She can hear my spoken words and see near objects. She does have scleral icterus. No drainage is noted from the nose or ears. She does not have any white patches in her mouth. Neck: No meningismus. Lungs: Clear to auscultation. Cardiovascular: Heart rate is regular. Abdomen: Soft and nontender. Extremities: The patient has a large splint around her arm which is wrapped with a pressure wraparound. Neurologic: The patient is awake. She can move her extremities. There is no tremor. Thank you for the consult. cc: MD Tyrell Rogers MD MTDD
[2019-07-09] MEDS ORDERED: NS 250 ML ONE (13:17)
[2019-07-09] MEDS: ZYRTEC PO SCH (17:13)
[2019-07-10] MEDS: SYNTHROID PO SCH (06:49)
[2019-07-10] MEDS: PROTONIX PO SCH (06:50)
--- NOTE | 2019-07-10 09:08 | PROGRESS NOTE ---
DATE: 07/10/2019 SUBJECTIVE: The patient reports feeling okay. Denies any fever, chills, or any burning on urination. OBJECTIVE: Vital Signs: Temperature 98.4 degrees, heart rate 78, respiratory rate 20, blood pressure 187/72, O2 saturation 97% on room air. General: This is a 74-year-old, female, lying in bed in no acute distress. Cardiovascular: S1 and S2 heard. No murmurs, gallops, or rubs. Regular rate and rhythm. Respiratory: Clear bilaterally to auscultation. No work of breathing or using accessory muscles. Abdomen: Soft, nontender to palpation. Bowel sounds present. No organomegaly. Neurological: The patient is alert and oriented x3. Moves all 4 extremities. LABORATORY DATA: Reviewed. ASSESSMENT AND PLAN: 1. Status post revision open reduction internal fixation of the right olecranon. Orthopedics is following this patient. Apparently, she is going to be discharged from their standpoint. 2. History of alcoholic cirrhosis with end-stage liver disease. During her hospitalization, we have checked liver function tests, and all those numbers have been okay. She is stable. Will recommend to continue with lactulose and rifaximin. 3. Acute kidney injury, completely resolved. 4. Klebsiella pneumonia extended spectrum beta-lactamase urinary tract infection. This patient has been seen by Dr. Gustabo Roberts, who has agreed with the treatment with ertapenem, and he is going to set up this medication for 14 days. 5. Hypothyroidism. Will continue home medications. 6. Disposition. This patient is going to be discharged back to rehab. Will continue recommendations from Dr. Gustabo Roberts. At this point, will sign off. We appreciate the opportunity to participate in the care of this patient. cc: Tyrell Bellamy MD [facility]
[2019-07-10] MEDS: XIFAXAN PO SCH (09:17)
[2019-07-10] MEDS: INVANZ 1 GM/NS 1 GM/50 ML IVPB IV SCH (09:17)
[2019-07-10] MEDS: PERIDEX MT SCH (09:17)
[2019-07-10] MEDS: LACTULOSE PO SCH (09:17)
[2019-07-10] MEDS: ZYRTEC PO SCH (09:18)
[2019-07-10] MEDS: LASIX PO SCH (09:18)
[2019-07-10] MEDS: VITAMIN C PO SCH (09:18)
[2019-07-10] MEDS: KLOR-CON PO SCH (09:18)
[2019-07-10] MEDS: VITAMIN B-1 PO SCH (09:18)
[2019-07-10] MEDS: ASPIRIN PO SCH (09:18)
[2019-07-10] MEDS: FLONASE NAS SCH (09:19)
--- NOTE | 2019-07-10 09:38 | ORTHOPAEDICS PROGRESS NOTE ---
DATE: 07/10/2019 SUBJECTIVE: No acute events overnight. Patient was seen by infectious disease for her extended beta lactamase resistant Klebsiella UTI. They recommend PICC line placement and 2 weeks of ertapenem. A PICC line was placed yesterday. Patient states her elbow and hip were feeling better. She is tolerating a diet. LABORATORY: Pending. Hematocrit was 32 yesterday. OBJECTIVE: Examination of right upper extremity shows the splint to be intact in good repair. Motor is intact at the AIN, PIN, ulnar nerve distribution. Sensation intact to light touch to median, radial, ulnar, and axillary nerves. Radial pulse palpable. Brisk capillary refill x5. Examination of right lower extremity shows skin intact. Mild tenderness to palpation laterally over the greater trochanter. Thigh and calf soft and compressible. Neurovascularly intact. ASSESSMENT: A 74-year-old female status post revision ORIF right olecranon fracture. Postop day 4. She also has closed treatment of right greater trochanteric femur fracture. PLAN: 1. Patient is nonweightbearing right upper extremity. I emphasized the importance of not using that arm to push up or help with transfers or mobilization. 2. Weightbearing as tolerated right lower extremity. PT to mobilize. 3. Klebsiella UTI: Dr. Roberts with Infectious Disease is following her for this. He ordered a PICC line and 2 weeks of ertapenem to treat this. She will follow up with him in regards to antibiotics. 4. Appreciate hospitalist's recommendations. 5. Disposition: Plan to discharge the patient back to [facility] today once home health antibiotics are arranged, and she is cleared from Infectious Disease as well as hospitalist standpoint. She will follow up with me in 2 weeks at her previously scheduled appointment. cc: MD KINJAL Rios
[2019-07-10 10:30] LABS: AGAP 14; BUN 6 mg/dL (8-22); CALCIUM 7.7 mg/dL (8.8-10.2); CHLORIDE 95 mmol/L (98-107); COSMO 276; CREATININE 0.5 mg/dL (0.5-0.9); ESTIMATED GFR > 60; GLUCOSE 172 mg/dL (70-104); POTASSIUM 3.6 mmol/L (3.5-5.1); SODIUM 137 mmol/L (136-145); TCO2 28 mmol/L (25-35)
[2019-07-10 10:33] LABS: BASO# 0.04 X1000 (0.0-0.2); BASO% 0.6 % (0.0-0.8); EOS# 0.37 X1000 (0.0-0.7); EOS% 5.3 % (0.0-10.0); HEMATOCRIT 36.6 % (37.0-47.0); HEMOGLOBIN 12.7 g/dL (12.0-16.0); LYMPH# 1.19 X1000 (1.2-3.4); MCH 36.5 PG (27-31); MCHC 34.7 g/dL (33-37); MCV 105.2 FL (81-99); MONO% 12.8 % (1.7-9.3); MPV 11.3 FL (7.4-10.4); NEUT# 4.52 X1000 (1.4-6.5); NEUT% 64.3 % (42.2-75.2); PLT 158 X1000 (130-400); RBC 3.48 XMIL (4.2-5.4); RDW 13.2 % (11.5-14.5); WBC 7.02 X1000 (4.8-10.8)
[2019-07-10 12:08] VITALS: BP 160/52
--- NOTE | 2019-07-10 12:46 | DISCHARGE SUMMARY ---
ADMISSION DATE: 07/06/2019 DISCHARGE DATE: 07/10/2019 ADMISSION DIAGNOSES: 1. Right olecranon fracture with failed hardware. 2. Right greater trochanteric femur fracture. DISCHARGE DIAGNOSES: 1. Right olecranon fracture with failed hardware. 2. Right greater trochanteric femur fracture. PROCEDURE: Revision open reduction internal fixation of right olecranon fracture with hardware removal. CONSULTATIONS: 1. Infectious Disease. 2. Hospitalist Group. COMPLICATIONS: None. BRIEF HOSPITAL COURSE: Ms. Garcia is a 74-year-old lady who has been followed by ct and sustained a closed olecranon fracture a couple of weeks ago. She previously underwent open reduction internal fixation of the fracture, and was discharged to rehab. While in rehab, she has had a couple of falls, and has been using the arm to push up. At her initial postoperative appointment, she had a failed fixation of the fracture, and pulled the most proximal piece out. Given these findings, decision was made to proceed back to the operating room to undergo revision fixation of the fracture. Risks, benefits, and alternative therapies were discussed with the patient and family regarding surgery. All questions were answered. Informed consent was obtained. The patient presented to [facility] on 07/06/2019 to undergo the above procedure. There were no acute complications during surgery. She did have a hard time waking up from anesthesia, similar to her initial operation. She was admitted to the hospital for observation. Internal Medicine Group was consulted for medical management and recommendations given her significant end-stage liver disease. A urine culture was obtained while in-house, demonstrating extended beta lactamase-resistant Klebsiella pneumoniae. Infectious Disease was thus consulted, and recommended ertapenem for 14 days with PICC line placement. The patient had a PICC line placed while in-house. In regards to her elbow and hip, she had no complications postoperatively and is doing well. On postop day 4, the patient had her PICC line in place. She was working well with Physical Therapy, and was tolerating a diet. She was thus discharged back to [facility] on 07/10/2019. DISPOSITION: [facility]. CONDITION: Stable. ACTIVITY: The patient is weightbearing as tolerated, right lower extremity. Nonweightbearing, right upper extremity. MEDICATIONS: See medication reconciliation list. DISCHARGE INSTRUCTIONS: 1. The patient is to take aspirin 325 mg daily for DVT prophylaxis. 2. She is to keep her splint clean, dry, and intact until her followup appointment. 3. She will follow up with Dr. Roberts in Infectious Disease in a couple of weeks for antibiotic management and PICC line removal. 4. The patient is to return to the ER or call MD with any acute-onset chest pain, shortness of breath, fever greater than 101.5, drainage from surgical incision. cc: Tyrell Bellamy MD
--- NOTE | 2019-07-10 15:09 | INFECTIOUS DISEASE PROGRESS NO ---
DATE: 07/10/2019 Ms. Garcia is being discharged to the rehab today. We have been treating her for a Klebsiella urinary tract infection, which is ESBL positive. She will need 14 total days of ertapenem 1 gram IV daily. Orders have been put in for her to go to rehab with the medication, as well as labs to be drawn. Her daughter states she will only be at rehab for 5 days, after which time she will go home. We have put in a consult for [facility] to pick her up after those 5 days are up. Then, we will need to see her back in our office in 2 weeks. These plans have been discussed with and recommended by Dr. Roberts. Dictated by VENUS Alegre for Gustabo Roberts MD cc: MD Tyrell Rogers MD MTDD
== END 2019-07-10 15:15 | DRG 496 ==
LOC: OR 08:46 → 4N 08:46
PROVIDERS: ADMIT Internal Medicine; ATTEND Orthopaedic Surgery Sports Medicine